=== PATIENT | male | born 1995 | race Caucasian/White ===

== ENCOUNTER 2022-12-23 09:51 | Emergency (ER) | payer BC ==
[2022-12-23] MEDS ORDERED: Sodium Chloride 0.9% 10 ML Syringe FLUSH PRN (10:51)
[2022-12-23] MEDS ORDERED: Sodium Chloride 0.9% 2.5 ML Syringe FLUSH PRN (10:51)
[2022-12-23] MEDS ORDERED: Sodium Chloride 0.9% 1,000 ML IV STA ×3 (10:52→12:59)
[2022-12-23 11:16] LABS: APPEARANCE,URINE CLEAR; BILIRUBIN,URINE NEGATIVE (NEGATIVE); COLOR,URINE YELLOW; GLUCOSE,URINE NEGATIVE (NEGATIVE); KETONES,URINE NEGATIVE (NEGATIVE); LEUKOCYTE ESTERASE,URINE NEGATIVE (NEGATIVE); NITRITE,URINE NEGATIVE (NEGATIVE); OCCULT BLOOD,URINE NEGATIVE (NEGATIVE); PH,URINE 6.5 (5.0-8.0); PROTEIN,URINE NEGATIVE (NEGATIVE); UROBILINOGEN,URINE 0.2 EU/dL (<2.0)
[2022-12-23 11:18] LABS: BASOPHILS ABSOLUTE AUTO 0.1 K/uL (0.0-0.1); BASOPHILS PERCENT AUTO 0.9 % (0.0-1.5); EOSINOPHILS ABSOLUTE AUTO 0.1 K/uL (0.0-0.7); HEMATOCRIT 51.3 % (38.0-50.0); HEMOGLOBIN 17.6 g/dL (13.0-17.0); LYMPHOCYTES ABSOLUTE AUTO 2.5 K/uL (0.6-2.4); LYMPHOCYTES PERCENT AUTO 32.6 % (16.0-40.0); MEAN CORPUSCULAR HEMOGLOBIN 30.9 pg (27.0-32.0); MEAN CORPUSCULAR HGB CONC 34.3 g/dL (31.0-37.0); MEAN CORPUSCULAR VOLUME 90.2 fL (80.0-98.0); MONOCYTES ABSOLUTE AUTO 0.9 K/uL (0.0-0.8); MONOCYTES PERCENT AUTO 12.2 % (0.0-15.0); NEUTROPHILS ABSOLUTE AUTO 4.1 K/uL (1.4-5.7); NEUTROPHILS PERCENT AUTO 53.3 % (48.0-80.0); NRBC ABSOLUTE 0 K/uL; PLATELET COUNT,PLT 220 K/uL (150-400); RED BLOOD CELL COUNT 5.69 M/uL (4.50-5.90); WHITE BLOOD CELL COUNT,WBC 7.64 K/uL (4.0-11.0)
[2022-12-23 11:46] LABS: A/G RATIO 1.2 (0.9-1.6); ALBUMIN 4.7 g/dL (3.4-5.0); BILIRUBIN TOTAL 1.1 mg/dL (0.2-1.0); CALCIUM 9.4 mg/dL (8.5-10.1); CARBON DIOXIDE,CO2 31.1 mmol/L (21.0-32.0); CREATININE 1.9 mg/dL (0.8-1.3); EST CRCL DRUG DOSING (CG) 61.65 mL/min; MAGNESIUM 2.6 mg/dL (1.8-2.4); POTASSIUM,K 3.6 mmol/L (3.5-5.1); PROTEIN TOTAL,TP 8.5 g/dL (6.4-8.2)
[2022-12-23 12:16] LABS: PHOSPHORUS 3.8 mg/dL (2.6-4.7); URIC ACID 8.8 mg/dL (2.6-7.2)
[2022-12-23 12:21] LABS: PERCENT FE SATURATION 32.67 % (20-55); TRANSFERRIN 246.4
[2022-12-23 12:54] LABS: T4 FREE 0.15 ng/dL (0.76-1.46); TSH ULTRASENSITIVE 134.19 uIU/mL (0.36-3.74)
== END 2022-12-23 14:36 | disposition home or self-care (01) ==
LOC: MW.ED 09:51
DX: M62.82 Rhabdomyolysis (principal); N17.9 Acute kidney failure, unspecified; E03.9 Hypothyroidism, unspecified; R74.8 Abnormal levels of other serum enzymes; R74.01 Elevation of levels of liver transaminase levels
CPT/HCPCS: 36415; 80053; 81003; 82550; 82728; 83550; 83690; 83735; 84100; 84439; 84443; 84550; 85025; 86308; 86376; 96360; 96361; 99284; J3490; J7030; 93010

== ENCOUNTER 2023-03-29 15:15 | Emergency (ER) | payer BC ==
[2023-03-29] MEDS ORDERED: Rabies Vaccine (Avian) 2.5 Unit Inj Kit IM ONE (16:05)
== END 2023-03-29 17:28 | disposition home or self-care (01) ==
LOC: MW.ED 15:15
DX: Z29.14 Encounter for prophylactic rabies immune globulin (principal); Z23 Encounter for immunization
CPT/HCPCS: 90471; 90675; 99282; 99283-25

== ENCOUNTER 2023-04-05 08:20 | Emergency (ER) | payer BC ==
[2023-04-05] MEDS ORDERED: Rabies Vaccine (Avian) 2.5 Unit Inj Kit IM ONE (08:42)
== END 2023-04-05 09:18 | disposition left against medical advice (07) ==
LOC: MW.ED 08:20
DX: Z53.21 Procedure and treatment not carried out due to patient leaving prior to being seen by health care provider (principal)
CPT/HCPCS: 90471; 90675